=== PATIENT | male | born 1960 | race Caucasian/White ===

== ENCOUNTER 2019-05-22 09:15 | Outpatient (CLI) | payer OTHER ==
[2019-05-22 20:14] LABS: BASOPHILS # (AUTO) 0.1 10^3/uL (0.0-0.1); BASOPHILS % (AUTO) 1.4 %; EOSINOPHILS # (AUTO) 0.2 10^3/uL (0.0-0.7); EOSINOPHILS % (AUTO) 3.7 %; HGB - HEMOGLOBIN 12.9 g/dL (14.0-18.0); LYMPHOCYTES # (AUTO) 1.7 10^3/uL (1.5-3.5); LYMPHOCYTES % (AUTO) 38.4 %; MEAN CORPUSCULAR HEMOGLOBIN 29.9 pg (27.0-31.0); MEAN CORPUSCULAR VOLUME 93.5 fL (80.0-94.0); MEAN PLATELET VOLUME 9.1 fL (7.4-11.4); MONOCYTES # (AUTO) 0.6 10^3/uL (0.0-1.0); MONOCYTES % (AUTO) 13.5 %; NEUTROPHILS # (AUTO) 1.9 10^3/uL (1.5-6.6); NEUTROPHILS % (AUTO) 42.8 %; PLT - PLATELET COUNT 336 10^3/uL (130-450); RED BLOOD COUNT 4.31 10^6/uL (4.70-6.10); RED CELL DISTRIBUTION WIDTH 13.9 % (12.0-15.0); WHITE BLOOD COUNT 4.4 x10^3/uL (4.8-10.8)
[2019-05-22 20:36] LABS: ALBUMIN 4.5 g/dL (3.2-5.5); ALBUMIN/GLOBULIN RATIO 1.8 (1.0-2.2); ALKALINE PHOSPHATASE 50 IU/L (42-121); ALT ALANINE AMINOTRANSFERASE 22 IU/L (10-60); AST ASPARTATE AMINOTRANSFERASE 28 IU/L (10-42); BILIRUBIN,TOTAL 0.7 mg/dL (0.2-1.0); BUN - BLOOD UREA NITROGEN 18 mg/dL (6-20); CALCIUM 8.8 mg/dL (8.5-10.3); CARBON DIOXIDE - CO2 25 mmol/L (21-32); CHLORIDE 100 mmol/L (101-111); CHOL/HDL RATIO 2.8 (<5.0); CHOLESTEROL 255 mg/dL; CREATININE 0.9 mg/dL (0.6-1.2); GFR - MDRD 86 (>89); GLUCOSE 102 mg/dL (70-100); HDL CHOLESTEROL 92 mg/dL; LDL CHOLESTEROL,CALCULATED 154 mg/dL; LDL/HDL RATIO 1.7 (<3.6); SODIUM 132 mmol/L (135-145); VLDL CHOLESTEROL 9 mg/dL
[2019-05-22 20:38] LABS: HB2 TOTAL 13.3 g/dL; HEMOGLOBIN A1C 0.54 g/dL; HEMOGLOBIN A1C % 5.9 % (4.6-6.2)
[2019-05-24 15:15] LABS: HEPATITIS C ANTIBODY NON-REACTIVE (NON-REACTIVE)
== END 2019-05-22 09:16 | disposition home or self-care (01) ==
LOC: LAB.S 09:15
PROVIDERS: ATTEND Internal Medicine
DX: Z11.59 Encounter for screening for other viral diseases (principal); T88.7XXS Unspecified adverse effect of drug or medicament, sequela; Z13.6 Encounter for screening for cardiovascular disorders
CPT/HCPCS: 36415; 80053; 80061; 83036; 83721; 85025; 86803

== ENCOUNTER 2019-06-05 11:19 | Outpatient (CLI) | payer OTHER | END 2019-06-05 11:20 | disposition home or self-care (01) | LOC: RT 11:19 | DX: F33.41 Major depressive disorder, recurrent, in partial remission (principal) | CPT/HCPCS: 93005 ==

== ENCOUNTER 2019-06-06 15:54 | Outpatient (CLI) | payer OTHER ==
--- NOTE | 2019-06-19 09:29 | Mammography Report ---
Reason: ROUTINE MAMMO Procedure Date: 06/06/2019 Accession Number: [id number] / [id number] Procedure: LEONOR - Screening Mammo w/Pankaj CPT Code: Final Report FULL RESULT: EXAM: Screening Mammo w/Pankaj DATE: 06/06/2019 4:22 PM CLINICAL HISTORY: Screening encounter. History of nulliparity. History of early menses. History of bilateral breast reduction surgery in 2005. History of left breast excisional biopsy with negative pathology results. TECHNIQUE: (B) - Bilateral CC, laterally exaggerated CC, MLO views were obtained. COMPARISON: 03/14/2018 through 01/29/2014. PARENCHYMAL PATTERN: (D) - The breast(s) demonstrate(s) heterogeneously dense fibroglandular parenchyma. FINDINGS: Postsurgical changes bilaterally are redemonstrated, essentially unchanged. There are no suspicious masses, calcifications, or areas of distortion. IMPRESSION: Benign findings. BI-RADS category 2. RECOMMENDATION: (ANNUAL) - Recommend routine annual screening mammography. BI-RADS CATEGORY: (2) - Benign Findings. STANDARD QUALIFYING STATEMENTS: 1. This examination was not reviewed with the aid of Computer-Aided Detection (CAD). 2. A negative or benign imaging report should not preclude biopsy if clinically suspicious findings are present. 3. Dense breasts may obscure an underlying neoplasm. 4. This examination was reviewed with the aid of 3D breast imaging (tomosynthesis).
== END 2019-06-06 15:55 | disposition home or self-care (01) ==
LOC: EDSEX → DI 15:54
PROVIDERS: ATTEND Internal Medicine
DX: Z12.31 Encounter for screening mammogram for malignant neoplasm of breast (principal)
CPT/HCPCS: 77063; 77067

== ENCOUNTER 2021-03-05 11:36 | Outpatient (CLI) | payer OTHER | END 2021-03-05 23:59 | LOC: LAB.N 11:36 | DX: R05.3 Chronic cough (principal); B34.9 Viral infection, unspecified; Z20.822 Contact with and (suspected) exposure to COVID-19 ==

== ENCOUNTER 2025-01-24 07:41 | Inpatient (IN) ==
--- NOTE | 2025-01-24 08:00 | ED Physician Documentation ---
PD HPI GI BLEED Stated complaint Stated Complaint: DIZZINESS,GEN WEAKNESS Chief complaint Chief Complaint: General History obtained from History obtained from: Patient Additional information Additional information: Liliana Rose is a 64-year-old female who had some dental work done and had 2 infections in her mouth this past month. She was taking some ibuprofen and Tylenol for this these have now cleared up and she has began to feel weak about 3 weeks ago. She has had progressive weakness and felt that she was getting short of breath whenever she did something so she came to see the urgent care clinic yesterday. She was sent into the hospital to get blood work and an x-ray as she got a call later in the evening telling her to come to the hospital for a low blood count. Review of Systems Patient denies any fever chills or sweats she has had weakness exertional dyspnea and no cough. She denies any vomiting she has had some slight nausea. She denies any constipation or diarrhea. Meds/Allgy Home Medications Ambulatory Orders Medication Instructions Recorded Confirmed adapalene 0.1 % topical gel 1 applic topical DAILY 10/1201/24/25 biotin 10,000 mcg capsule 10,000 mcg PO DAILY 01/23/25 01/24/25 bupropion HCl 150 mg 24 hr tablet, 300 mg PO QAM 01/2301/24/25 extended release (Wellbutrin XL) buspirone 15 mg tablet 15 mg PO BID 01/23/25 cetirizine 10 mg tablet 10 mg PO DAILY PRN allergy s ymptoms 01/23/25 01/24/25 cholecalciferol (vitamin D3) 25 25 mcg PO DAILY 01/24/25 mcg (1,000 unit) capsule propranolol 20 mg tablet 20 mg PO DAILY PRN anxiety 0 01/23/25 01/24/25 trazodone 50 mg tablet 25 mg PO HS 01/23/25 5 calcium 600 mg (as 1 tab PO BID 01/24/25 carbonate)-vitamin D3 5 mcg (200 unit) tablet ferrous sulfate 325 mg (65 mg 325 mg PO DAILY 01/24/25 01/24/25 iron) tablet (Feosol) fluticasone propionate 50 1 spray intranasal DAILY 11/1201/24/25 mcg/actuation nasal spray,suspension multivitamin 1 tab PO DAILY 01/24/25 09/0 11/12 venlafaxine 75 mg capsule,extended 225 mg PO DAILY 11/1201/24/25 release 24 hr Allergies Allergies Allergy/AdvReac Type Severity Reaction Status Date / Time morphine Allergy Unknown Unknown Verified 01/24/25 07:51 PFSH Active Problems All Active Problems (Updated 01/24/25 @ 13:37 by Pj Gonzalez PA-C) Seasonal allergies (Chronic) Anxiety (Chronic) Depression (Chronic) Anemia due to blood loss, acute (Acute) Fatigue (Acute) Surgical History Surgical History (Updated 01/24/25 @ 10:40 by Rahul Martines MD) S/P endometrial ablation Hx of fusion of cervical spine S/P shoulder surgery H/O knee surgery Social History Social History (Updated 01/24/25 @ 10:42 by Rahul Martines MD) Smoking Status: Never smoker Second hand tobacco smoke exposure: No Do you dip or chew tobacco?: No Do you vape?: No Patient requests smoking cessation consult: No Initiate information on smoking cessation: No Living arrangement: At home Marital Status: Living Condition: With spouse/s.o. 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 Her blood pressure is wide pulse pressure with a put pressure of 101/31. Remainder of her vitals are normal Constitutional normal general appearance, no apparent distress, average body habitus, no limitations and alert HENMT normocephalic and head/scalp atraumatic Eyes PERRL and EOMs intact bilaterally Conjunctival are pale Neck/C-Spine visual inspection normal and trachea midline Chest inspection of chest normal Respiratory breath sounds equal bilaterally, normal respiratory effort and clear to auscultation bilaterally Cardiovascular The patient is bradycardic with a heart rate in the 50s and 60s without murmur Gastrointestinal abdomen normal to inspection, abdomen soft to palpation and nontender to palpation Genitourinary no CVA tenderness Back/Pelvis spine normal to inspection and no thoracic spine tenderness Extremities normal to inspection Neurology home office claim specialist II-XII intact and no movement abnormality noted Psychiatry mental status grossly normal Skin The patient appears pale Results Vitals Vitals: Vital Signs - 24 hr 01/24/25 07:49 01/24/25 09:37 01/24/25 09:48 Temperature 36.6 C 36.7 C 36.7 C Temperature Source Temporal Artery Scan Oral Oral Pulse Rate 57 L Pulse Rate [Monitoring electrodes] 53 L 53 L Respiratory Rate 16 13 14 Blood Pressure 101/31 L Blood Pressure [Left Brachial artery] 99/56 L 99/56 L O2 Saturation 100 100 100 O2 Source Room air Room air Room air Sedation scale 0-Fully awake 0-Fully awake Pain Intensity 0 0 0 01/24/25 09:51 Temperature Temperature Source Pulse Rate 50 L Pulse Rate [Monitoring electrodes] Respiratory Rate 16 Blood Pressure 109/63 Blood Pressure [Left Brachial artery] O2 Saturation 95 O2 Source Room air Sedation scale Pain Intensity 0 Oxygen O2 Source Room air Labs Labs: Microbiology 01/24/25 08:28 Occult Blood - Final Stool Laboratory Tests 01/23/25 01/24/25 19:19 08:03 WBC 4.6 L RBC 1.40 L Hgb 4.4 L* Hct 13.5 L* MCV 96.4 MCH 31.4 H MCHC 32.6 RDW 19.5 H Plt Count 269 MPV 9.3 Neut # (Auto) 2.1 Lymph # (Auto) 1.9 [place]ancock # (Auto) 0.5 Eos # (Auto) 0.1 Baso # (Auto) 0.0 Absolute Nucleated RBC 0.00 Nucleated RBC % 0.0 PT 12.6 INR 1.1 APTT 28.8 Sodium 137 Potassium 4.0 Chloride 106 Carbon Dioxide 25 Anion Gap 6.0 BUN 27 H Creatinine 0.9 Estimated GFR (MDRD) 63 L Glucose 106 H Calcium 9.2 Magnesium 2.0 Iron 278 H TIBC 262 % Saturation 106 H Transferrin 187 L Ferritin 389.7 H Total Bilirubin 0.4 AST 17 ALT 22 Alkaline Phosphatase 54 Total Protein 6.7 Albumin 4.3 Globulin 2.4 Albumin/Globulin Ratio 1.8 Lipase 41 Vitamin B12 380 Blood Type O POSITIVE Blood Type Recheck O POSITIVE Antibody Screen NEGATIVE Crossmatch IS Only See Detail PD Medical Decision Making ED course Complexity details: reviewed old records, reviewed results, re-evaluated patient, considered differential, d/w patient and d/w family Reviewed Lab Results: We reviewed a complete blood count showing a white blood cell count depressed at 4.6 similar to what the patient has had previously today her hemoglobin and hematocrit are 4.4 and 13.5 and a critically low level the patient has previously run 12.9 and 40.3 and yesterday ran 4.9 and 14.7. These blood counts indicate significant blood loss and potentially continued blood loss. Patient's coags were normal chemistries show normal electrolytes BUN is elevated 27 and the creatinine is 0.9 the liver functions and magnesium are normal. I interpret these laboratory results to indicate the patient has significant blood loss and with the elevation in BUN out of proportion to the creatinine potentially from digestion of blood. ED course: Liliana Rose presented to our emergency department with the knowledge that she had extremely low blood counts and she is pale and weak. She has a widened pulse pressure and she is taking propranolol and her heart rate is in the 50s and 60s. We have arranged for a transfusion to be done and I have consulted our surgeon Dr. Ricardo who is on board for scoping if necessary and recommends transfusion. Discharge Plan Discharge Patient Disposition: 65 [facility] DC/Xfer Condition: Serious Clinical Impression: Anemia due to blood loss, acute Interventions: ED Admission Assessment Last Done: 01/24/25 10:14 Vitals documented within 30 minutes of discharge?: Yes
--- OUTSIDE RECORDS SUMMARY | 2025-01-24 08:05 | EXTERNAL MEDICAL SUMMARY RPT | Continuity of Care Document ---
Author Organization [facility] Address [address] [place] [id number] Phone Problems date description facility 2025-01-23 17:58 Other fatigue [facility] 2025-01-23 18:58 Other fatigue [facility] 2025-01-24 00:01 Other fatigue [facility] 2025-01-24 00:02 Other fatigue [facility] 2025-01-24 07:51 Other fatigue [facility] Results/Labs test date facility value unit notes Result panel 1 NUCLEATED RED BLOOD CELLS AUTO 2025-01-23 19:19 [facility] 0.0 /100wbc (missing) BASOPHILS # (AUTO) 2025-01-23 19:19 [facility] 0.0 10 3/ul (missing) NRBC ABSOLUTE COUNT (AUTO) 2025-01-23 19:19 [facility] 0.00 x10 3/ul (missing) EOSINOPHILS # (AUTO) 2025-01-23 19:19 [facility] 0.1 10 3/ul (missing) BILIRUBIN,TOTAL 2025-01-23 19:19 [facility] 0.4 mg /dl As of November 2022 testing method has changed, this may include reference ranges. MONOCYTES # (AUTO) 2025-01-23 19:19 [facility] 0.6 10 3/ul (missing) CREATININE 2025-01-23 19:19 [facility] 0.9 mg/dl As of November 2022 testing method has changed, this may include reference ranges. LDL/HDL RATIO 2025-01-23 19:19 [facility] 1.4 (mis sing) (missing) RED BLOOD COUNT 2025-01-23 19:19 [facility] 1.56 10 6/ul (missing) ALBUMIN/GLOBULIN RATIO 2025-01-23 19:19 [facility] 1.7 (missing) (missing) % IRON SATURATION 2025-01-23 19:19 [facility] 102 % (missing) CHLORIDE 2025-01-23 19:19 [facility] 103 mmol/l As of November 2022 testing method has changed, this may include reference ranges. GLUCOSE 2025-01-23 19:19 [facility] 119 mg/dl As of November 2022 testing method has changed, this may include reference ranges. CHOLESTEROL 2025-01-23:19 [facility] 132 mg/dl Social History date description facility
[2025-01-24 08:14] LABS: MEAN PLATELET VOLUME 9.3 fL (7.9-10.8); NRBC ABSOLUTE COUNT (AUTO) 0.00 x10^3/uL; NUCLEATED RED BLOOD CELLS AUTO 0.0 /100WBC; PLT - PLATELET COUNT 269 10^3/uL (130-450); RED CELL DISTRIBUTION WIDTH 19.5 % (12.0-15.0)
[2025-01-24 08:18] LABS: HCT - HEMATOCRIT 13.5 % (37.0-47.0); HGB - HEMOGLOBIN 4.4 g/dL (12.0-16.0)
[2025-01-24 08:36] LABS: ALT ALANINE AMINOTRANSFERASE 22.0 IU/L (10-60); AST ASPARTATE AMINOTRANSFERASE 17.0 IU/L (10-42); BUN - BLOOD UREA NITROGEN 27.0 mg/dL (6-20); CARBON DIOXIDE - CO2 25.0 mmol/L (21-32); CREATININE 0.9 mg/dL (0.6-1.3); GFR - MDRD 63.0 (>89)
[2025-01-24 08:49] LABS: INR 1.1 (0.8-1.2); PT - PROTHROMBIN TIME 12.6 secs (9.9-12.6)
[2025-01-24] MEDS: PANTOPRAZOLE 40 MG VIAL IVP STA (09:51)
--- OUTSIDE RECORDS SUMMARY | 2025-01-24 10:01 | EXTERNAL MEDICAL SUMMARY RPT | Continuity of Care Document ---
Author Organization [facility] Address [address] [place] [phone] Phone Problems date description facility 2025-01-23 17:58 [...] (missing) (missing) % IRON SATURATION 2025-01-23 19:19 [facility] 102 % (missing) CHLORIDE 2025-01-23 19:19 [facility] 103 mmol/l As of November 2022 testing method has changed, this may include reference ranges. GLUCOSE 2025-01-23 19:19 [facility] 119 mg/dl As of November 2022 testing method has changed, this may include reference ranges. CHOLESTEROL 2025-01-23:19 [facility] 132 mg/dl Social History date description facility
[2025-01-24] MEDS ORDERED: ACETAMINOPHEN 325 MG TABLET PO PRN (10:09)
[2025-01-24] MEDS ORDERED: SODIUM CHLORIDE FLUSH 0.9% 10 ML SYRINGE IVP PRN (10:09)
[2025-01-24] MEDS ORDERED: ONDANSETRON 4 MG/2 ML VIAL IVP PRN (10:09)
--- NOTE | 2025-01-24 10:12 | CONSULTATION NOTE ---
Referring Provider Name of Referring Provider:: David Cunningham) Consult Date: 01/24/25 History of Present Illness Admitted From Admitted From:: ED History Obtained From Records Reviewed: yes History obtained from: patient, ED provider, chart History of Present Illness HPI Comment/Other: 64 y/o F with recent dental work and infections (2 in last one month). She was taking naproxen 500mg TID for pain when her infection was at it's worse, but has not taken anything for pain for the last 10 days. She reports progressive weakness and shortness of breath over the last three weeks, prompting her to go to urgent care yesterday where her hemoglobin was found to be low. She was advised to come to the ED and her hemoglobin is again low today. She deines any fevers or chills. She denies vomiting of any kind (including hematemesis) but has had some bloating and mild nausea. She denies abdominal pain. She denies constipation, diarrhea, BRBPR, and melena, but does state her stools are sometimes dark. FOBT in the ED was negative. Patient denies tobacco and alcohol use. She doesn't think she's ever had an upper endoscopy and denies history of GERD and PUD. She had a colonoscopy 15 years ago and does yearly FIT tests, which have always been negative. She denies any family history of colon cancer. PFSH Active Problems All Active Problems (Updated 01/24/25 @ 10:45 by Rahul Martines MD) Seasonal allergies (Chronic) Anxiety (Chronic) Depression (Chronic) Anemia due to blood loss, acute (Acute) Fatigue (Acute) Surgical History Surgical History (Updated 01/24/25 @ 10:40 by Rahul Martines MD) S/P endometrial ablation Hx of fusion of cervical spine S/P shoulder surgery H/O knee surgery Social History Social History (Updated 01/24/25 @ 10:42 by Rahul Martines MD) Smoking Status: Never smoker Second hand tobacco smoke exposure: No Do you dip or chew tobacco?: No Do you vape?: No Patient requests smoking cessation consult: No Initiate information on smoking cessation: No Living arrangement: At home Marital Status: Living Condition: With spouse/s.o. 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 Home Medications Ambulatory Orders Medication Instructions Recorded Confirmed adapalene 0.1 % topical gel 1 applic topical QDAY 10/1201/24/25 azelastine 137 mcg-fluticasone 50 1 spray intranasal B ID 01/23/25 01/24/25 mcg/spray nasal spray biotin 10,000 mcg capsule 10,000 mcg PO DAILY 01/23/25 01/24/25 bupropion HCl 150 mg 24 hr tablet, 150 mg PO QAM 01/2301/24/25 extended release (Wellbutrin XL) buspirone 15 mg tablet 15 mg PO BID 01/23/25 calcium carbonate 430 mg PO QDAY 01/23/2511/12 cetirizine 10 mg tablet 10 mg PO QDAY PRN allergy sy mptoms 01/23/25 01/24/25 cholecalciferol (vitamin D3) 25 25 mcg PO QDAY 01/24/25 mcg (1,000 unit) capsule ferrous sulfate 15 mg iron (75 15 mg PO QDAY 01/23/25 01/24/25 mg)/mL oral syringe (ORAL USE) (Fe-Charlie) propranolol 20 mg tablet 20 mg PO ONCE 01/23/2501/24 trazodone 50 mg tablet 50 mg PO QDAY 01/23/2501/24 venlafaxine 75 mg tablet 75 mg PO QDAY 01/23/2501/24 Allergies Allergies Allergy/AdvReac Type Severity Reaction Status Date / Time morphine Allergy Unknown Unknown Verified 01/24/25 07:51 Results Lab Results Lab results reviewed: Yes 01/24/25 08:03 01/24/25 08:03 Other Lab Results: Lab Results x24hrs 01/24/25 01/23/25 Range/Units 08:03 19:19 WBC 4.6 L (4.8-10.8) x10^3/uL RBC 1.40 L (4.20-5.40) 10^6/uL Hgb 4.4 L* (12.0-16.0) g/dL Hct 13.5 L* (37.0-47.0) % MCV 96.4 (81.0-99.0) fL MCH 31.4 H (27.0-31.0) pg MCHC 32.6 (32.0-36.0) g/dL RDW 19.5 H (12.0-15.0) % Plt Count 269 (130-450) 10^3/uL MPV 9.3 (7.9-10.8) fL Neut # (Auto) 2.1 (1.5-6.6) 10^3/uL Lymph # (Auto) 1.9 (1.5-3.5) 10^3/uL Ellis # (Auto) 0.5 (0.0-1.0) 10^3/uL Eos # (Auto) 0.1 (0.0-0.7) 10^3/uL Baso # (Auto) 0.0 (0.0-0.1) 10^3/uL Absolute Nucleated RBC 0.00 x10^3/uL Nucleated RBC % 0.0 /100WBC PT 12.6 (9.9-12.6) secs INR 1.1 (0.8-1.2) APTT 28.8 (24.9-33.3) secs Sodium 137 (135-145) mmol/L Potassium 4.0 (3.5-4.5) mmol/L Chloride 106 (101-111) mmol/L Carbon Dioxide 25 (21-32) mmol/L Anion Gap 6.0 (6-13) BUN 27 H (6-20) mg/dL Creatinine 0.9 (0.6-1.3) mg/dL Estimated GFR (MDRD) 63 L (>89) Glucose 106 H (74-104) mg/dL Calcium 9.2 (8.5-10.3) mg/dL Magnesium 2.0 (1.7-2.3) mg/dL Total Bilirubin 0.4 (0.2-1.0) mg/dL AST 17 (10-42) IU/L ALT 22 (10-60) IU/L Alkaline Phosphatase 54 (42-121) IU/L Total Protein 6.7 (6.4-8.9) g/dL Albumin 4.3 (3.2-5.5) g/dL Globulin 2.4 (2.1-4.2) g/dL Albumin/Globulin Ratio 1.8 (1.0-2.2) Lipase 41 (11-82) U/L Blood Type O POSITIVE Blood Type Recheck O POSITIVE Antibody Screen NEGATIVE Crossmatch IS Only See Detail Review of Systems Status of ROS: 10 or more systems reviewed and unremarkable except as noted in history and below Exam Exam Vital Signs: Vital Signs x48h Temp Pulse Pulse Resp BP BP Pulse Ox 01/24/25 09:51 50 L 16 109/63 95 01/24/25 09:48 98.1 F 53 L 14 99/56 L 100 01/24/25 09:37 98.1 F 53 L 13 99/56 L 100 01/24/25 07:49 97.9 F 57 L 16 101/31 L 100 GEN: No acute distress, appears younger than stated age, alert and oriented HEENT: NCAT, MMM, EOMI NEURO: CN II-XII grossly intact, no obvious focal deficits CV: RRR PULM: non labored, on RA ABD: soft, non tender to superficial and deep palpation, no rebound or guarding CIRCULATORY: no clubbing, cyanosis, or edema SKIN: no lesions appreciated LYMPH: no obvious lymphadenopathy MSK: 4/4 strength in all extremities PSYCH: Affect is appropriate Conclusion/Plan Problem List (1) Anemia due to blood loss, acute: Plan: Patient profoundly anemic, but well compensated. I suspect her bleeding occurred over the last several weeks. FOBT in ED negative. Patient denies BRBPR, melena, hematochezia. Agree with blood transfusion. I would consider upper endoscopy if patient's hgb is not stable after transfusion or if patient shows signs of active bleeding. Recommend checking iron studies, as patient has history of low iron and has not been taking iron supplement lately. Ok for patient to have clear liquids at this time, recommend NPO if hgb not stable in preparation for upper endoscopy. (2) Fatigue: Plan: 06/22 #1 Plan Thank you for consulting me in the care of this patient! General surgery will follow along in her care during her hosptial stay. Lab Results Lab results reviewed: Yes 01/24/25 08:03 01/24/25 08:03
[2025-01-24] MEDS: LACTATED RINGERS 1,000 ML IV SCH (11:15)
--- NOTE | 2025-01-24 11:52 | PHARMACY PROGRESS NOTE ---
Best Possible Medication History Admit Date and Time: 01/24/25 [id number] Home Medications Medication Instructions Recorded Confirmed Type adapalene 0.1 % topical gel 1 applic topical DAILY 10/1201/24/25 History biotin 10,000 mcg capsule 10,000 mcg PO DAILY 01/23/25 01/24/25 History bupropion HCl 150 mg 24 hr tablet, 300 mg PO QAM 01/2301/24/25 History extended release (Wellbutrin XL) buspirone 15 mg tablet 15 mg PO BID 01/23/25 History cetirizine 10 mg tablet 10 mg PO DAILY PRN allergy s ymptoms 01/23/25 01/24/25 History cholecalciferol (vitamin D3) 25 25 mcg PO DAILY 01/24/25 History mcg (1,000 unit) capsule propranolol 20 mg tablet 20 mg PO DAILY PRN anxiety 0 01/23/25 01/24/25 History trazodone 50 mg tablet 25 mg PO HS 01/23/25 5 History calcium 600 mg (as 1 tab PO BID 01/24/25 History carbonate)-vitamin D3 5 mcg (200 unit) tablet ferrous sulfate 325 mg (65 mg 325 mg PO DAILY 01/24/25 01/24/25 History iron) tablet (Feosol) fluticasone propionate 50 1 spray intranasal DAILY 11/1201/24/25 History mcg/actuation nasal spray,suspension multivitamin 1 tab PO DAILY 01/24/2511/12 History venlafaxine 75 mg capsule,extended 225 mg PO DAILY 11/1201/24/25 History release 24 hr Processed by: Pharmacy (Medication reconciliation completed by Mill Crane Operator, [place]) Medications reviewed in ED?: No Medication History completed: Yes Patient Interview: Completed Secondary Source(s): Written medication list and Insurance records [facility] Statement: As the person ultimately responsible for medication therapy, providers are able to order a medication from an existing home medication list in [facility] via the "Reconcile Routine" prior to Confirmation of that medication by support services tech. Such practice is discouraged except when the physician, in their clinical judgment, deems that a medical need exists for a medication without regard to previous use.
[2025-01-24] MEDS ORDERED: CETIRIZINE 10 MG TABLET PO PRN (12:54)
[2025-01-24 13:13] LABS: % IRON SATURATION 106.0 % (20-50)
[2025-01-24] MEDS: SODIUM CHLORIDE FLUSH 0.9% 10 ML SYRINGE IVP SCH (16:09)
--- NOTE | 2025-01-24 16:39 | HISTORY & PHYSICAL EXAMINATION ---
Chief Complaint Chief Complaint Chief Complaint: weakness and RAMÍREZ History of Present Illness Admitted From Admitted From:: ED History Obtained From Records Reviewed: EHR History obtained from: pt Exam Limitations: none History of Present Illness HPI Comment/Other: 64 yo F with pmhx of depression, anxiety, Fe deficiency anemia (B12 and Fe def run in family) presenting with generalized weakness and dizziness progressing over the past 3 wks. These symptoms caused her to go the the [facility] yesterday where Hgb was low and she was advised to come to the ED. Notes 2 dental infections requiring dental procedure in the past month. Took naproxen 500 TID for approx 1 wk after most recent procedure, off for psat 10 days. Denies abd pain, melena, BRBPR, hematemesis. No h/o GI bleed. Never required transfusion in the past. Had c scope 15 yrs ago reportedly normal, normal FIT tests since then. Eats regular diet, including meat. Denies jaundice. Denies vaginal bleeding. Of note, pt states she donates blood every 2 months and has been doing this for some time, last approx 2 mo ago. In the ED she was found to have hgb 4.4. Transfused 2 units PRBCs and given iv ppi. Meds/Allgy Home Medications Ambulatory Orders Medication Instructions Recorded Confirmed adapalene 0.1 % topical gel 1 applic topical DAILY 10/1201/24/25 biotin 10,000 mcg capsule 10,000 mcg PO DAILY 01/23/25 01/24/25 bupropion HCl 150 mg 24 hr tablet, 300 mg PO QAM 01/2301/24/25 extended release (Wellbutrin XL) buspirone 15 mg tablet 15 mg PO BID 01/23/25 cetirizine 10 mg tablet 10 mg PO DAILY PRN allergy s ymptoms 01/23/25 01/24/25 cholecalciferol (vitamin D3) 25 25 mcg PO DAILY 01/24/25 mcg (1,000 unit) capsule propranolol 20 mg tablet 20 mg PO DAILY PRN anxiety 0 01/23/25 01/24/25 trazodone 50 mg tablet 25 mg PO HS 01/23/25 5 calcium 600 mg (as 1 tab PO BID 01/24/25 carbonate)-vitamin D3 5 mcg (200 unit) tablet ferrous sulfate 325 mg (65 mg 325 mg PO DAILY 01/24/25 01/24/25 iron) tablet (Feosol) fluticasone propionate 50 1 spray intranasal DAILY 11/1201/24/25 mcg/actuation nasal spray,suspension multivitamin 1 tab PO DAILY 01/24/25 0911/12 venlafaxine 75 mg capsule,extended 225 mg PO DAILY 11/1201/24/25 release 24 hr Allergies Allergies Allergy/AdvReac Type Severity Reaction Status Date / Time morphine Allergy Unknown Unknown Verified 01/24/25 07:51 PFSH Active Problems All Active Problems (Updated 01/24/25 @ 13:37 by Pj Gonzalez PA-C) Seasonal allergies (Chronic) Anxiety (Chronic) Depression (Chronic) Anemia due to blood loss, acute (Acute) Fatigue (Acute) Surgical History Surgical History (Updated 01/24/25 @ 10:40 by Rahul Martines MD) S/P endometrial ablation Hx of fusion of cervical spine S/P shoulder surgery H/O knee surgery Social History Social History (Updated 01/24/25 @ 10:42 by Rahul Martines MD) Smoking Status: Never smoker Second hand tobacco smoke exposure: No Do you dip or chew tobacco?: No Do you vape?: No Patient requests smoking cessation consult: No Initiate information on smoking cessation: No Living arrangement: At home Marital Status: Living Condition: With spouse/s.o. 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 Review of Systems Status of ROS: 10 or more systems reviewed and unremarkable except as noted in history and below Exam Exam Vital Signs: Vital Signs x48h Temp Pulse Pulse Resp BP BP Pulse Ox 01/24/25 16:04 36.7 C 51 L 16 113/64 97 01/24/25 13:22 36.5 C 50 L 14 103/65 93 01/24/25 13:02 36.5 C 50 L 14 109/61 94 01/24/25 12:48 36.5 C 50 L 14 112/62 94 01/24/25 10:04 36.4 C L 52 L 18 116/61 94 01/24/25 09:51 50 L 16 109/63 95 01/24/25 09:48 36.7 C 53 L 14 99/56 L 100 01/24/25 09:37 36.7 C 53 L 13 99/56 L 100 middle aged woman lying in bed, NAD, sclera anicteric, MMM, no thyromegaly LCTAB, nonlabored RRR, S1S2, trace LE edema abd soft, NT, ND, BS+, no HSM AAOx3, CN 2-12 intact, strength 5/5 UE and LE bilat, sensation intact, normal tone Conclusion/Plan Problem List (1) Anemia due to blood loss, acute: (2) Fatigue: Qualifiers: Fatigue type: unspecified Qualified Code(s): R53.83 - Other fatigue Plan 1. severe, symptomatic normocytic anemia: recent NSAID use raises concern for gastritis, PUD, yet no report of melena or hematemesis. Consider slow microscopic blood loss. Frequent blood donations may have depleted her iron stores. Her Fe studies show Fe sat 106, ferritin 389, not consistent with Fe deficiency. Hemolysis is a possibility, but bili wnl. Consider Pure red cell aplasia. - appreciate surgery input - iv ppi BID - LR 125 ml/hr - clear diet for now - avoid NSAIDs and heparins - obtain hemolysis labs- LDH, haptoglobin, retic, peripheral smear if available - inpt scopes may be necessary if H/H continues to drop or signs of bleeding 2. dyspnea: due to anemia. - as above 3. anxiety d/o, depression: - cont home buspirone, bupropion, venlafaxine dvt ppx: SCDs Dispo: Lives at home with . Lab Results Lab results reviewed: Yes 01/24/25 08:03 01/24/25 08:03
[2025-01-24 16:41] LABS: GLUCOSE, URINE (UA) NEGATIVE (NEGATIVE); KETONES,URINE (UA) NEGATIVE (NEGATIVE); OCCULT BLOOD,URINE NEGATIVE (NEGATIVE)
[2025-01-24 17:11] LABS: HCT - HEMATOCRIT 19.4 % (37.0-47.0); HGB - HEMOGLOBIN 6.4 g/dL (12.0-16.0)
[2025-01-24] MEDS: PANTOPRAZOLE 40 MG VIAL IVP SCH (20:44)
[2025-01-24] MEDS: CALCIUM CARB (OYSTER SHELL) 500 MG TABLET PO SCH (21:07)
[2025-01-25 02:10] VITALS: O2SAT 99
[2025-01-25 05:08] LABS: ABSOLUTE RETICS # AUTO 0.024 10^6/uL (0.020-0.110); HCT - HEMATOCRIT 22.6 % (37.0-47.0); HGB - HEMOGLOBIN 7.4 g/dL (12.0-16.0); MEAN PLATELET VOLUME 9.7 fL (7.9-10.8); NRBC ABSOLUTE COUNT (AUTO) 0.00 x10^3/uL; NUCLEATED RED BLOOD CELLS AUTO 0.0 /100WBC; PLT - PLATELET COUNT 252 10^3/uL (130-450); RED CELL DISTRIBUTION WIDTH 18.1 % (12.0-15.0); RETICULOCYTE COUNT % (AUTO) 0.98 % (0.5-2.3)
[2025-01-25 05:25] LABS: ALT ALANINE AMINOTRANSFERASE 23.0 IU/L (10-60); AST ASPARTATE AMINOTRANSFERASE 20.0 IU/L (10-42); BUN - BLOOD UREA NITROGEN 17.0 mg/dL (6-20); CARBON DIOXIDE - CO2 24.0 mmol/L (21-32); CREATININE 0.8 mg/dL (0.6-1.3); GFR - MDRD 72.0 (>89); PHOSPHORUS 3.3 mg/dL (2.5-5.0)
[2025-01-25 07:57] VITALS: TEMP 97.7
--- NOTE | 2025-01-25 08:48 | PROVIDER PROGRESS NOTE ---
Subjective General Admit Date: 01/24/25 Other Other Information/Narrative: Patient ambulating in the [place] this morning. She denies pain. Tolerating clears well, no n/v. Weakness and dizziness improved after blood transfusion. BMx3, all brown, none bloody or black, per patient. Review of Systems Status of ROS: 10 or more systems reviewed and unremarkable except as noted in history and below Exam Exam Vital Signs: Vital Signs x48h Temp Pulse Resp BP Pulse Ox 01/25/25 07:55 97.7 F 52 L 18 114/66 99 01/25/25 02:00 97.9 F 55 L 16 109/58 L 99 GEN: No acute distress, alert and oriented CV: RRR Pulm: non labored, on RA Abd: soft, non tender, no r/g Ext: no c/c/e Impression/Plan Problem List (1) Anemia due to blood loss, acute: Plan: Patient profoundly anemic, but well compensated. I suspect her bleeding occurred over the last several weeks. - s/p transfusion of 3U pRBC's yesterday - hgb stable overnight, no signs of active bleeding since presentation. FOBT in ED negative. Patient denies BRBPR, melena, hematochezia. I discussed options for upper and lower endoscopy as inpatient or outpatient. We discussed she does not appear to be actively bleeding and that outpatient prep for colonoscopy is easier and usually provides better results. She would like to proceed with upper and lower endoscopy as an outpatient. She was advised on return precautions including increased dizziness, hemetemesis, melena, hematochezia. I will have my office obtain insurance approval and schedule outpatient endoscopy. (2) Fatigue: Plan: Improved somewhat, though patient did not sleep well last night. 06/22 #1 Qualifiers: Fatigue type: unspecified Qualified Code(s): R53.83 - Other fatigue Plan Thank you for consulting me in the care of this patient! General surgery will follow along in her care during her hosptial stay.
[2025-01-25] MEDS: VENLAFAXINE ER 75 MG CAPSULE PO SCH (09:29)
[2025-01-25] MEDS: CHOLECALCIFEROL 25 MCG TABLET PO SCH (09:29)
[2025-01-25 13:40] VITALS: BP 115/63
--- NOTE | 2025-01-26 18:34 | Discharge Summary ---
Discharge Summary Admit Date: 01/24/25 Discharge Date: 01/25/25 Discharging Provider: Rodney Sherwood MD DIAGNOSES Admission Diagnoses: severe, symptomatic normocytic anemia dyspnea anxiety d/o, depression Discharge Diagnoses with Status of Each Condition: severe, symptomatic normocytic anemia dyspnea anxiety d/o, depression HPI History of Present Illness: 64 yo F with pmhx of depression, anxiety, Fe deficiency anemia (B12 and Fe def run in family) presenting with generalized weakness and dizziness progressing over the past 3 wks. These symptoms caused her to go the the [facility] yesterday where Hgb was low and she was advised to come to the ED. Notes 2 dental infections requiring dental procedure in the past month. Took naproxen 500 TID for approx 1 wk after most recent procedure, off for psat 10 days. Denies abd pain, melena, BRBPR, hematemesis. No h/o GI bleed. Never required transfusion in the past. Had c scope 15 yrs ago reportedly normal, normal FIT tests since then. Eats regular diet, including meat. Denies jaundice. Denies vaginal bleeding. Of note, pt states she donates blood every 2 months and has been doing this for some time, last approx 2 mo ago. In the ED she was found to have hgb 4.4. Transfused 2 units PRBCs and given iv ppi. HOSPITAL COURSE Hospital Course: 1. severe, symptomatic normocytic anemia: Initial Hgb 4.4, required 3 units PRBCs to bring hgb > 7. On day of discharge Hgb stable at 7.4. Recent NSAID use raises concern for gastritis and PUD, yet no report of melena or hematemesis. Consider slow microscopic blood loss. Frequent blood donations may have depleted her iron stores. Her Fe studies show Fe sat 106, ferritin 389, not consistent with Fe deficiency. Hemolysis is a possibility, but bili wnl. LDH was not elevated and haptoglobin was normal. Consider Pure red cell aplasia, such as viral or toxic cause- venlafaxine has blood dyscrasia listed as possible side effect. Surgery was consulted and recommended outpt upper and lower endoscopies. She was prescribed an oral ppi. She was prescribed a vitamin with iron. Pt was instructed to avoid NSAIDs and to instead use tylenol prn for headache and other pain. She was recommended to have close follow-up with her PMD, Dr. Jones, in [place], to monitor hgb and consider hematology referral if GI workup is unrevealing or if anemia persists. 2. dyspnea: due to anemia. Improved after transfusions. 3. anxiety d/o, depression: Continued home buspirone, bupropion, venlafaxine. ALLERGIES Allergies Allergy/AdvReac Type Severity Reaction Status Date / Time morphine Allergy Unknown Unknown Verified 01/24/25 07:51 MEDICATIONS Ambulatory Orders Medication Instructions Recorded Confirmed adapalene 0.1 % topical gel 1 applic topical DAILY 10/1201/24/25 biotin 10,000 mcg capsule 10,000 mcg PO DAILY 01/23/25 01/24/25 bupropion HCl 150 mg 24 hr tablet, 300 mg PO QAM 01/2301/24/25 extended release (Wellbutrin XL) buspirone 15 mg tablet 15 mg PO BID 01/23/25 cetirizine 10 mg tablet 10 mg PO DAILY PRN allergy s ymptoms 01/23/25 01/24/25 cholecalciferol (vitamin D3) 25 25 mcg PO DAILY 01/24/25 mcg (1,000 unit) capsule propranolol 20 mg tablet 20 mg PO DAILY PRN anxiety 0 01/23/25 01/24/25 trazodone 50 mg tablet 25 mg PO HS 01/23/25 5 calcium 600 mg (as 1 tab PO BID 01/24/25 carbonate)-vitamin D3 5 mcg (200 unit) tablet fluticasone propionate 50 1 spray intranasal DAILY 11/1201/24/25 mcg/actuation nasal spray,suspension venlafaxine 75 mg capsule,extended 225 mg PO DAILY 11/1201/24/25 release 24 hr acetaminophen 325 mg tablet 650 mg (2 x 325 mg) PO Q4H R PRN 01/25/25 headache #30 tabs pantoprazole 20 mg tablet,delayed 20 mg PO DAILY #30 t abs 01/25/25 release polyethylene glycol 3350 17 17 g PO DAILY #119 grams 0 01/25/25 gram/dose oral powder (Miralax) vit no.37-iron fum 29 mg 1 tab PO DAILY #30 t abs 01/25/25 iron-folic acid 1 mg chewable tablet (PreNata) PHYSICAL EXAM AT DISCHARGE Physical Exam Other/Comments: middle aged woman lying in bed, NAD, sclera anicteric, MMM, no thyromegaly LCTAB, nonlabored RRR, S1S2, trace LE edema abd soft, NT, ND, BS+, no HSM AAOx3, CN 2-12 intact, strength 5/5 UE and LE bilat, sensation intact, normal tone LABS 01/25/25 04:41 01/25/25 04:41 DIAGNOSTIC IMAGING Diagnostic Imaging Results Comments: CXR, 01/23/25: IMPRESSION: No acute cardiopulmonary process. TIME SPENT Time Spent in Discharge (Minutes): 25 Discharge Plan Discharge Patient Disposition: Home, Self Care Condition: Stable Medically Cleared Date:: 01/25/25 Prescriptions: New acetaminophen 325 mg Tablet 650 mg PO Q4HR PRN (Reason: headache) Qty: 30 0RF PreNata 29 mg iron- 1 mg tablet,chewable 1 tab PO DAILY Qty: 30 0RF pantoprazole 20 mg tablet,delayed release (DR/EC) 20 mg PO DAILY Qty: 30 0RF polyethylene glycol 3350 [Miralax] 17 gram/dose powder 17 g PO DAILY Qty: 119 0RF Continued venlafaxine 75 mg capsule,extended release 24hr 225 mg PO DAILY fluticasone propionate 50 mcg/actuation spray,suspension 1 spray intranasal DAILY Rx Instructions: administer into each nostril calcium carbonate-vitamin D3 600 mg-5 mcg (200 unit) tablet 1 tab PO BID trazodone 50 mg tablet 25 mg PO HS cetirizine 10 mg tablet 10 mg PO DAILY PRN (Reason: allergy symptoms) biotin 10,000 mcg capsule 10,000 mcg PO DAILY adapalene 0.1 % gel 1 applic topical DAILY buspirone 15 mg tablet 15 mg PO BID cholecalciferol (vitamin D3) 25 mcg (1,000 unit) capsule 25 mcg PO DAILY bupropion HCl [Wellbutrin XL] 150 mg tablet extended release 24 hr 300 mg PO QAM propranolol 20 mg tablet 20 mg PO DAILY PRN (Reason: anxiety) Discontinued ferrous sulfate [Feosol] 325 mg (65 mg iron) tablet 325 mg PO DAILY multivitamin Tablet 1 tab PO DAILY Activity Restrictions: Activity as Tolerated Diet: Regular Health Concerns: You were transfused 3 units of blood due to severe anemia. The cause of anemia remains unclear, but it is possible it was due to gastrointestinal irritation from NSAIDs (nonsteroidal anti-inflammatory drugs). You will be scheduled for endoscopies in the coming weeks to look for causes of blood loss. Your primary care provider can follow your blood levels in the coming months, and if the work-up remains inconclusive or anemia worsens, you may need to be referred to a inspector [employer]. For pain and headache, use acetaminophen. Avoid NSAIDs (ibuprofen, naproxen, alleve, motrin, aspirin). Contact your primary care provider or return to the hospital if you have lightheadedness, fainting, severe fatigue, blood in stool or dark black stool, vomiting blood, or for any other concerns. Print Language: Japanese Patient Instructions: Anemia Stand Alone Forms: PCP List Follow-up Care: CONNOR JONES MD [Primary Care Provider, Family Practice] Vitals documented within 30 minutes of discharge?: Yes
== END 2025-01-25 13:40 | disposition home or self-care (01) | DRG 812 ==
LOC: ED 07:41 → MS2 09:56
PROVIDERS: ADMIT Student in an Organized Health Care Education/Training Program; ATTEND Student in an Organized Health Care Education/Training Program